=== PATIENT | male | born 1960 | race Caucasian/White ===

== ENCOUNTER 2019-05-12 03:04 | Emergency (ER) | payer OTHER ==
[~2019-05-12] VITALS: Ht 170.2 cm; Wt 86.2 kg
[2019-05-12 03:19] VITALS: BP_SYST 154
--- NOTE | 2019-05-12 03:20 | NUR ---
Patient to ER bed 2 for evaluation. Side rails up.
--- NOTE | 2019-05-12 03:25 | NUR ---
Pt C/O left arm pain S/P mechanical fall. Pt denies any KO and no demformities visualized. Has full ROM to extremity. Denies any other symptoms at this time. Will continue to monitor.
--- NOTE | 2019-05-12 03:34 | NUR ---
ER Dr. Mcdermott at bedside examining patient.
--- NOTE | 2019-05-12 03:41 | NUR ---
Radiology at bedside for xray
[2019-05-12] MEDS ORDERED: KETOROLAC TROMETHAMINE 60 MG/2 ML VIAL IM ONE (03:45)
[2019-05-12 04:39] VITALS: BP_SYST 142
--- NOTE | 2019-05-12 04:40 | NUR ---
Patient given written and verbal discharge instructions and verbalizes understanding. ER MD discussed with patient the results and treatment provided. Patient in stable condition. ID arm band removed. Rx of Flexeril and Naprosyn given. Patient educated on pain management and to follow up with PMD. Pain Scale 0. Opportunity for questions provided and answered. Medication side effect fact sheet provided.
== END 2019-05-12 04:40 | disposition home or self-care (01) ==
LOC: SED 03:04
DX: S43.402A Unspecified sprain of left shoulder joint, initial encounter (principal); W01.0XXA Fall on same level from slipping, tripping and stumbling without subsequent striking against object, initial encounter; Y93.89 Activity, other specified; Y92.89 Other specified places as the place of occurrence of the external cause; Y99.8 Other external cause status
CPT/HCPCS: 73030; 96372; 99283; J1885